=== PATIENT | female | born 1970 | race African-American/Black ===

== ENCOUNTER 2020-09-12 10:33 | Inpatient (IN) | payer OTHER, SELFPAY ==
[2020-09-12] VITALS (12 sets, daily range): BP systolic 120–153; BP diastolic 73–86; PULSE 86–108; RESP 15–45; TEMP 36.2–36.7; O2SAT 80–100; BMI 32.5
--- NOTE | ~2020-09-12 | CT_ITS ---
EXAMINATION: CTA chest PE protocol DATE: 09/14/2020 13:28 INDICATION: Hypoxia. Covid-positive. TECHNIQUE: Computed tomography angiography (CTA) of the chest was performed with 100 mL Omnipaque-350 intravenous contrast timed to evaluate the pulmonary arteries. Coronal maximum intensity projection 3D-reconstructions were created by the technologist. Automated exposure control and iterative reconst ruction technique were employed. Exam dose: 348.08 mGy-cm total exam DLP. COMPARISON: 09/12/2020 portable AP chest FINDINGS: There is diagnostic contrast enhancement of the pulmonary arteries and no evidence of pulmo nary embolism. There are extensive patchy infiltrates throughout both lungs all lobes. Mild hilar and mediastinal lymph node prominence is likely reactive. No thoracic aortic aneurysm. Normal heart size. No pericardial or pleural effusion. Small sliding hiatal hernia. Normal morphology of the adrenal glands. Included upper abdominal structures are unremarkable. IMPRESSION: Extensive bilateral pneumonia No evidence of pulmonary embolism Reviewed, dictated and finalized at [facility]. Reviewed, dictated and finalized at location [facility].
--- NOTE | ~2020-09-12 | XR_ITS ---
EXAMINATION: XR chest 1V portable DATE: 09/12/2020 11:01 INDICATION: Shortness of breath, cough and COVID positive TECHNIQUE: frontal view of the chest was obtained. COMPARISON: None FINDINGS: Patchy airspace opacities in the bilateral mid and lower lung zones. No pleural effusion or pneumotho rax. The cardiomediastinal silhouette is normal. Visualized bones and soft tissues are unremarkable. IMPRESSION: 1. Patchy bilateral lung disease most likely related to COVID pneumonia with differential including l ess likely pulmonary edema. Reviewed, dictated and finalized at location [facility]. IMPRESSION: 1. Patchy bilateral lung disease most likely related to COVID pneumonia with di fferential including less likely pulmonary edema.
--- NOTE | 2020-09-12 10:42 | ECG_ITS ---
Measurements Intervals [place] Rate: 100 P: 26 CT: 173 QRS: -22 QRSD: 86 T: 3 QT: 333 QTc: 430 Interpretive Statements SINUS TACHYCARDIA POSSIBLE LEFT ATRIAL ENLARGEMENT BORDERLINE R WAVE PROGRESSION, ANTERIOR LEADS BORDERLINE T WAVE ABNORMALITY- ANT/INF LEADS BORDERLINE ECG Electronically Signed On 09-13-2020 7:04:59 CDT by Ridge Dorman D.O.
--- NOTE | 2020-09-12 10:53 | ED.GENADULT ---
HPI - General Adult General Chief complaint: Shortness of Breath/Dyspnea Stated complaint: SOB, COVID + Source: patient History of Present Illness HPI narrative: Patient is 49 y/o female complaining of increasing SOB for last 1-2 days. Exertion worsens her SOB. She states that she has been sick with fever up to 102, cough, SOB and weakness for approximately 10 days. She tested positive for COVID on 09/07/20. She did received any outpatient treatment for COVID. She has not received COVID vaccine. EMS reports sat of 85% on RA when they arrived. Patient was placed on O2. Related Data Home Medications Medication Instructions Recorded Confirmed alprazolam [Xanax] 0.25 mg PO BID PRN 09/12/20 sertraline [Zoloft] 50 mg PO DAILY 09/12/20 Allergies Allergy/AdvReac Type Severity Reaction Status Date / Time No Known Allergies Allergy Verified 09/12/20 10:50 Review of Systems Constitutional: Constitutional: Reports chills, Reports fever(s), Reports headache(s) and Reports weakness Eyes: Eyes: Denies blurry vision ENT: Reports headache(s) and Denies neck pain Cardiovascular: Cardiovascular: Denies chest pain and Reports dyspnea Respiratory: Respiratory: Reports cough and Reports dyspnea Gastrointestinal: Gastrointestinal: Denies abdominal pain, Denies diarrhea, Denies nausea and Denies vomiting Genitourinary: Genitourinary: Denies hematuria and Denies dysuria Musculoskeletal: Musculoskeletal: Denies back pain and Denies neck pain Neurologic: Reports headache(s) and Reports weakness Exam Const: General: no acute distress and well developed Orientation/consciousness: oriented to person, oriented to place, oriented to time and patient oriented x3 HENMT: Head: normocephalic Ears: external ears normal General nose exam: Normal external nose present Eyes: General: appearance normal, both eyes and all related structures Conjunctivae: conjunctivae normal Neck: Neck: normal visual inspection and full ROM Chest: Chest palpation & inspection: normal inspection of the chest and no tenderness Resp: Effort & Inspection: tachypneic Auscultation: clear to auscultation bilaterally Cardio: Rate: tachycardic Rhythm: regular rhythm GI: GI Palp: No abdominal tenderness and Yes Soft to palpation Skin: General skin exam: normal color and turgor normal Neuro: General: oriented to person, oriented to place, oriented to time and patient oriented x3 Cognition (Neuro): normal cognition Extrem: General: normal to inspection, full ROM and no pedal edema Psych: Appearance: grossly normal Mental Status: mental status grossly normal Affect: normal affect Course Consultations Consultation #1: Discussed with ANJALI Kilgore, who agrees to admit. Date: 09/12/20 Time: 12:47 Vital Signs Vital signs: Vital Signs Temperature 36.6 C 09/12/20 10:40 Pulse Rate 101 H 09/12/20 10:40 Respiratory Rate 24 H 09/12/20 10:40 Blood Pressure 126/86 09/12/20 10:40 Pulse Oximetry 96 09/12/20 10:40 Temperature 36.6 C 09/12/20 10:40 Pulse Rate 101 H 09/12/20 11:46 Respiratory Rate 15 09/12/20 11:46 Blood Pressure 135/78 09/12/20 11:46 Pulse Oximetry 93 09/12/20 11:46 Medical Decision Making Vital Signs Vital Signs: Vital Signs Temperature 36.6 C 09/12/20 10:40 Pulse Rate 101 H 09/12/20 10:40 Respiratory Rate 24 H 09/12/20 10:40 Blood Pressure 126/86 09/12/20 10:40 Pulse Oximetry 96 09/12/20 10:40 Temperature 36.6 C 09/12/20 10:40 Pulse Rate 101 H 09/12/20 11:46 Respiratory Rate 15 09/12/20 11:46 Blood Pressure 135/78 09/12/20 11:46 Pulse Oximetry 93 09/12/20 11:46 Lab Data Result diagrams: 09/12/20 11:46 09/12/20 11:46 Labs: Lab Results 09/12/20 09/12/20 09/12/20 Range/Units 11:46 11:46 11:46 WBC 4.3 L (4.5-10.0) K/mm3 RBC 4.69 (4.2-5.4) M/mm3 Hgb 14.6 (12.0-15.0) g/dL Hct 43.1 (37.0-47.0) % MCV 91.9 (80-1
--- NOTE | 2020-09-12 10:58 | PC.NURSE ---
Xray at bedside.
[2020-09-12] MEDS: DEXAMETHASONE SOD PHOS INJ 4 MG/ML VIAL 6 MG IV PUSH (10:59)
[2020-09-12 11:52] LABS: Basophils Percent Auto 0.2 % (0.2-1.2); Hematocrit 43.1 % (37.0-47.0); Hemoglobin 14.6 g/dL (12.0-15.0); Immature Granulocyte Absolute 0.01 K/mm3 (0.00-0.031); Immature Granulocyte Percent A 0.2 % (0-0.5); Lymphocytes Absolute Auto 0.51 K/mm3 (0.9-3.2); Lymphocytes Percent Auto 11.9 % (18.3-44.2); Mean Corpuscular HGB Conc 33.9 g/dl (32-36); Mean Corpuscular Hemoglobin 31.1 pg (26-34); Mean Corpuscular Volume 91.9 fl (80-100); Mean Platelet Volume 10.8 fl (7.4-10.4); Monocytes Absolute Auto 0.2 K/mm3 (0.1-0.6); Monocytes Percent Auto 4.9 % (2.6-8.5); Neutrophils Absolute Auto 3.6 K/mm3 (1.3-6.7); Neutrophils Percent Auto 82.8 % (45.5-73.1); Platelet Count Result 185 k/mm3 (150-375); Red Blood Count 4.69 M/mm3 (4.2-5.4); Red Cell Distribution Width 14.1 % (11.5-14.5); White Blood Count 4.3 K/mm3 (4.5-10.0)
[2020-09-12 12:04] LABS: Alanine Aminotransferase 119 U/L (4-35); Albumin Level 3.7 g/dL (3.5-5.1); Alkaline Phosphatase 64 U/L (38-126); Anion Gap 6 mmol/L (8-16); Aspartate Amino Transferase 150 U/L (14-36); Bilirubin,Total 0.3 mg/dL (0.2-1.3); Blood Urea Nitrogen 5 mg/dL (7-17); Calcium 8.9 mg/dL (8.4-10.2); Carbon Dioxide 26 mmol/L (22-30); Chloride 106 mmol/L (98-107); Estimated CRCL calculation 98 ml/min; Estimated Glomerular Filt Rate > 60; Glucose 112 mg/dL (65-105); Potassium 4.3 mmol/L (3.4-5.0); Sodium 138 mmol/L (137-145)
[2020-09-12 12:27] LABS: Troponin I < 0.012 ng/mL (0.000-0.034)
--- NOTE | 2020-09-12 13:03 | PC.NURSE ---
patient refused further care from this rn when helena rn attempted to attach iv tubing to iv accessand patient stated that her skin was pinched. patient became hostile and told this rn that she was tripping and asked this rn to leave room
[2020-09-12 13:35] LABS: INR 0.9; Partial Thromboplastin Time 34.3 SECONDS (22.3-36.8); Prothrombin Time 12.8 Seconds (11.1-14.7)
[2020-09-12] MEDS: REMDESIVIR 200 MG/NS 250 ML 200 MG/250 ML BAG 250 MG IVPB (13:37)
[2020-09-12 14:34] LABS: Troponin I < 0.012 ng/mL (0.000-0.034)
--- NOTE | 2020-09-12 14:36 | ADMGEN ---
This patient, Georgia Rivera, was admitted to [address] [place] [address] Room 311-01. Patient/family oriented to hospital policies and general routines including ID bracelet, bed and alarms, visiting hours, pain management, procedures, bathroom and other care routines, personal items, smoking policy, room service/diet, and visiting hours. Information on how to activate the Rapid Response Team has been discussed. Patient/Family are encouraged to report perceived risks to care and to ask questions if they do not understand what they are told or what they should do.
--- NOTE | 2020-09-12 15:30 | PM.IMHP ---
H&P: HPI History of Present Illness Date/Time: 09/12/20 15:30 Chief Complaint: Shortness of breath. Narrative: This is a relatively healthy 49-year-old female who presented to the emergency department earlier today via EMS from home for evaluation of shortness of breath. She has not been feeling well since 09/02/2020 with multiple symptoms to include generalized malaise, fatigue, body aches, joint aches, fever with a T-max of 102? F, loss of taste, decreased appetite, sore throat, and cough productive of clear phlegm. She tested positive for COVID-19 on 09/07/2020 and was told by the health department that she could come out of quarantine tomorrow. Unfortunately she has felt worse over the past couple of days with progressive shortness of breath. She has been monitoring her pulse ox at home and reports that it was in the mid 70s today prompting her to call 911. On EMS arrival her SpO2 was 85% on room air and she is now requiring 5 liters nasal cannula to maintain saturations above 90%. She is not certain as to where she picked up COVID however notes that her 7-year-old grandson was positive. She denies chest pain and pleuritic pain. No vomiting or diarrhea. Review of Systems Review of Systems: Narrative: Twelve systems were reviewed with pertinent positives and negatives as per HPI. She has had isolated readings of elevated blood pressure however that typically occurs when she is at the doctor's office. She is monitored them at home is not required antihypertensives. She has also been told that her lipids are a bit elevated however she is watching that with diet and exercise. Except as documented, all other systems were reviewed and are negative. [facility] Past Medical History Medical History (Updated 09/12/20 @ 15:13 by Magui Sena PA-C) Anxiety Hyperlipidemia Surgical History Surgical History (Updated 09/12/20 @ 15:13 by Magui Sena PA-C) History of tubal ligation Family History Family History (Updated 09/12/20 @ 23:33 by Magui Sena PA-C) Other Heart disease Social History Social History (Updated 09/12/20 @ 23:34 by Magui Sena PA-C) Social History: Surrogate decision maker: Sister Stefano and daughter Ricardo Montiel. Code status: Full code. Smoking packs per day: 0.5 Smoking cigarettes per day: 10.0 Years smoked: 3 Smoking pack-years: 1.50 Smoking status: Former smoker Alcohol intake: current Drinks per week: 8 Substance use: current Substance use type: does not use Additional living arrangements comments: Resides in [place], [place]. Additional occupation/education comments: Employed at [employer]. Gender identity (if verbalized by the patient): Female Spiritual care concerns: No Meds Home Medications and Allergies Home Medications Medication Instructions Recorded Confirmed Type alprazolam [Xanax] 0.25 mg PO BID PRN 09/12/20 09/12/20 History norethindrone acetate 5 mg PO DAILY 09/12/20 09/12/20 History sertraline [Zoloft] 50 mg PO DAILY 09/12/20 09/12/20 History Allergies Allergy/AdvReac Type Severity Reaction Status Date / Time No Known Allergies Allergy Verified 09/12/20 14:46 Vital Signs Vital Signs - 24 hr 09/12/20 10:40 09/12/20 10:49 09/12/20 10:50 Temperature 97.9 F Pulse Rate 101 H Respiratory Rate 24 H Blood Pressure 126/86 Pulse Oximetry 96 80 L 96 09/12/20 10:53 09/12/20 11:15 09/12/20 11:40 Temperature Pulse Rate 107 H 100 100 Respiratory Rate 28 H 45 H 18 Blood Pressure Pulse Oximetry 94 100 09/12/20 11:46 Temperature Pulse Rate 101 H Respiratory Rate 15 Blood Pressure 135/78 Pulse Oximetry 93 Exam Narrative: Exam Narrative: General: Well-developed female supine in bed in no acute distress. She is mildly ill in appearance. Weight: 102.8 kilograms. BMI: 32.5. HEENT: PERRL, EOMI. Sclerae anicteric. Oral mucosa is tacky. Oropharynx clear. Neck: Supple. No
[2020-09-12 17:31] LABS: Troponin I < 0.012 ng/mL (0.000-0.034)
[2020-09-12] MEDS: WATER FOR IRRIGATION, STERILE 1,000 ML BOTTLE 1000 ML (23:39)
[2020-09-13] VITALS (8 sets, daily range): BP systolic 113–145; BP diastolic 61–84; PULSE 66–91; RESP 18–22; TEMP 36.1–36.8; O2SAT 90–95
[2020-09-13 06:33] LABS: Hematocrit 42.7 % (37.0-47.0); Hemoglobin 14.3 g/dL (12.0-15.0); Mean Corpuscular HGB Conc 33.5 g/dl (32-36); Mean Corpuscular Hemoglobin 30.9 pg (26-34); Mean Corpuscular Volume 92.2 fl (80-100); Mean Platelet Volume 10.8 fl (7.4-10.4); Platelet Count Result 241 k/mm3 (150-375); Red Blood Count 4.63 M/mm3 (4.2-5.4); Red Cell Distribution Width 14.2 % (11.5-14.5); White Blood Count 4.6 K/mm3 (4.5-10.0)
[2020-09-13 07:15] LABS: Alanine Aminotransferase 125 U/L (4-35); Albumin Level 3.8 g/dL (3.5-5.1); Alkaline Phosphatase 62 U/L (38-126); Anion Gap 7 mmol/L (8-16); Aspartate Amino Transferase 104 U/L (14-36); Bilirubin,Total 0.2 mg/dL (0.2-1.3); Blood Urea Nitrogen 6 mg/dL (7-17); CRP 25.3 mg/dL (<1.0); Calcium 9.2 mg/dL (8.4-10.2); Carbon Dioxide 26 mmol/L (22-30); Chloride 106 mmol/L (98-107); Estimated CRCL calculation 111 ml/min; Estimated Glomerular Filt Rate > 60; Glucose 134 mg/dL (65-105); Lactate Dehydrogenase 921 U/L (313-618); Potassium 4.3 mmol/L (3.4-5.0); Sodium 139 mmol/L (137-145)
[2020-09-13] MEDS: SERTRALINE HCL 50 MG TABLET PO (08:38)
[2020-09-13] MEDS: DEXAMETHASONE SOD PHOS INJ 4 MG/ML VIAL 6 MG IV PUSH (08:38)
[2020-09-13] MEDS: ENOXAPARIN 40 MG/0.4 ML SYRINGE SUB-Q (08:38)
[2020-09-13] MEDS: REMDESIVIR 100 MG/NS 250 ML 100 MG/250 ML BAG 250 MG IVPB (09:39)
[2020-09-13] MEDS: PANTOPRAZOLE 40 MG TABLET PO (11:17)
[2020-09-13] MEDS: SALINE 0.65% NAS SOLN 44 ML BTL 1 SPRAY NASAL (12:31)
--- NOTE | 2020-09-13 16:09 | PM.IMPN ---
Progress Note: A&P Assessment and Plan (1) Acute respiratory failure with hypoxia: Code(s): J96.01 - Acute respiratory failure with hypoxia Status: Acute Assessment and Plan: Secondary to COVID-19 pneumonia. Pulmonary embolism less likely given history. She is requiring 10 L supplemental oxygen per high-flow nasal cannula. She is maintaining adequate oxygen saturations with this. She notes that she is agreeable to intubation if this were to be necessary. Continue supplemental O2 with goal saturation 90% or above. Wean to goal. Treatment of COVID-19 as described below (2) Pneumonia due to COVID-19 virus: Code(s): U07.1 - COVID-19; J12.82 - Pneumonia due to coronavirus disease 2019 Status: Acute Assessment and Plan: Tested positive for COVID-19 on 09/07/2020 with symptom onset 09/02/2020. Chest x-ray showed patchy bilateral lung disease related to COVID pneumonia. She is afebrile. Continue IV dexamethasone and Remdesivir, initiated on 09/12/2020. Supportive care including expectorants, antipyretics, and bronchodilators Trend acute phase reactants Supplemental oxygen as needed. Continuous pulse ox monitoring given increased O2 requirements. Continue isolation precautions (3) Anxiety: Code(s): F41.9 - Anxiety disorder, unspecified Status: Acute Assessment and Plan: Mood is stable at this time. Continue sertraline and alprazolam as needed. (4) Elevated blood pressure reading: Code(s): R03.0 - Elevated blood-pressure reading, without diagnosis of hypertension Status: Acute Assessment and Plan: She has had 2 isolated blood pressure readings that were elevated, in the 140s to 150s systolic. Other blood pressure readings well controlled in the 120s. Monitor blood pressure trends. Addition of antihypertensive agent not felt to be necessary at this time but will follow blood pressure trends. Subjective Date/time seen: 09/13/20 16:09 Interval history: Date of service: 09/13/20 Georgia Rivera is a 49 year old female with history of anxiety and hyperlipidemia who is seen in follow-up for COVID-19 pneumonia. She is feeling better today but is still pretty short of breath. She is having frequent cough productive of white sputum. She endorses dyspnea with minimal exertion. Denies orthopnea, PND, or wheezing. Denies fever or chills. Denies anosmia or dysgeusia. No body aches or headache. No nausea, vomiting, diarrhea. Her appetite has been good. No urinary symptoms. She has no additional concerns at this time. Review of Systems Review of Systems: All systems reviewed & are unremarkable except as noted in HPI and below Exam Narrative: Exam Narrative: Ms. Rivera is a well-nourished, well-appearing 49-year-old female who is lying supine in bed. She appears comfortable and is in NARD. Neuro: awake, alert and oriented x4, speech clear, no focal neuro deficits noted HEENMT: normocephalic, atraumatic, EOMI, sclerae anicteric, moist oral mucosa, tongue midline, nares patent Neck: supple, no lymphadenopathy Respiratory: Diminished breath sounds bilaterally without crackles, rhonchi or wheezes, nonlabored breathing Cardio: regular rate, regular rhythm with S1-S2 Abdomen: nondistended, normoactive bowel sounds, soft, nontender to palpation, no rigidity or guarding Extremities: no edema, erythema, cyanosis, clubbing, or tenderness to palpation, DP pulses 2+ bilaterally Skin: no rashes or lesions, warm and dry Psych: appropriate mood and affect, judgment and insight intact Objective Data Vital Signs Vital Signs: Vital Signs - 24 hr 09/12/20 20:00 09/12/20 23:50 09/13/20 00:00 Temperature 97.7 F 97.2 F L Pulse Rate 96 86 91 Respiratory Rate 22 H 20 Blood Pressure 120/75 123/77 Pulse Oximetry 93 93 09/13/20 04:00 09/13/20 08:00 09/13/20 08:35 Temperature 97.2 F L 98.3 F Pulse Rate 83 82 Respiratory
--- NOTE | 2020-09-13 17:14 | PHAR ---
PT'S HOME MED NORETHINDRONE 5 MG TAB VERIFIED BY PHARMACY
[2020-09-13] MEDS: guaiFENesin 12 HR 600 MG TABCR PO (20:45)
[2020-09-14] VITALS (13 sets, daily range): BP systolic 105–124; BP diastolic 57–74; PULSE 57–75; RESP 18–20; TEMP 36–37; O2SAT 87–97
[2020-09-14] MEDS: SODIUM CHLORIDE NASAL GEL 14.1 GM 1 APPLIC NASAL (01:48)
[2020-09-14 06:12] LABS: Hematocrit 42.7 % (37.0-47.0); Hemoglobin 14.1 g/dL (12.0-15.0); Mean Corpuscular Volume 90.9 fl (80-100); Mean Platelet Volume 10.6 fl (7.4-10.4); Platelet Count Result 324 k/mm3 (150-375); Red Cell Distribution Width 14.1 % (11.5-14.5); White Blood Count 3.9 K/mm3 (4.5-10.0)
[2020-09-14 06:32] LABS: Alanine Aminotransferase 140 U/L (4-35); Albumin Level 3.7 g/dL (3.5-5.1); Alkaline Phosphatase 59 U/L (38-126); Anion Gap 7 mmol/L (8-16); Aspartate Amino Transferase 97 U/L (14-36); Bilirubin,Total 0.3 mg/dL (0.2-1.3); Blood Urea Nitrogen 11 mg/dL (7-17); Calcium 9.2 mg/dL (8.4-10.2); Carbon Dioxide 26 mmol/L (22-30); Chloride 105 mmol/L (98-107); Estimated CRCL calculation 111 ml/min; Estimated Glomerular Filt Rate > 60; Glucose 127 mg/dL (65-105); Lactate Dehydrogenase 856 U/L (313-618); Potassium 4.4 mmol/L (3.4-5.0); Sodium 138 mmol/L (137-145)
--- NOTE | 2020-09-14 09:22 | PM.IMPN ---
Progress Note: A&P Assessment and Plan (1) Acute respiratory failure with hypoxia: Code(s): J96.01 - Acute respiratory failure with hypoxia Status: Acute Assessment and Plan: [place] secondary to COVID-19 pneumonia. She required up to 10 L supplemental oxygen per high-flow nasal cannula and she was weaned to 9 L today. She notes that she is agreeable to intubation if this were to be necessary. Will order chest CTA to r/o pulmonary embolism given high oxygen requirements Continue supplemental O2 with goal saturation 90% or above. Wean to goal. Treatment of COVID-19 as described below (2) Pneumonia due to COVID-19 virus: Code(s): U07.1 - COVID-19; J12.82 - Pneumonia due to coronavirus disease 2018 Status: Acute Assessment and Plan: Tested positive for COVID-19 on 09/07/2020 with symptom onset 09/02/2020. Chest x-ray showed patchy bilateral lung disease related to COVID pneumonia. She is afebrile. Continue IV dexamethasone and Remdesivir, initiated on 09/12/2020. Supportive care including expectorants, antipyretics, bronchodilators, and chest physiotherapy Trend acute phase reactants Supplemental oxygen as needed. Continuous pulse ox monitoring given increased O2 requirements. Continue isolation precautions (3) Anxiety: Code(s): F41.9 - Anxiety disorder, unspecified Status: Acute Assessment and Plan: Mood is stable at this time. Continue sertraline and alprazolam as needed. (4) Elevated blood pressure reading: Code(s): R03.0 - Elevated blood-pressure reading, without diagnosis of hypertension Status: Acute Assessment and Plan: She has had 2 isolated blood pressure readings that were elevated, in the 140s to 150s systolic, likely secondary to acute illness and hospitalization. Other blood pressure readings well controlled in the 120s. Most recent BP 105/57. Monitor blood pressure trends. Addition of antihypertensive agent not felt to be necessary at this time but will follow blood pressure trends. Additional Plan Add colace and miralax PRN for constipation. Subjective Date/time seen: 09/14/20 09:22 Interval history: Mrs. Rivera is a 49 y.o. female with PMH significant for anxiety and hyperlipidemia who is seen in follow-up for COVID-19 pneumonia. She is feeling a bit better today. She notes dyspnea with exertion but she is comfortable at rest. She feels it is difficult to take deep breaths. She denies pleuritic pain or chest pain. Her nose is dry from the oxygen use. She is not having any dizziness or lightheadedness. Her appetite is poor. She has no abdominal pain, nausea, or vomiting. Her last bowel movement was Sunday morning. She denies leg swelling and calf pain. She denies headache. She has no other complaints. Review of Systems Review of Systems: All systems reviewed & are unremarkable except as noted in HPI and below Exam Narrative: Exam Narrative: General: Very pleasant, well-developed, and well-nourished 49 y.o. female sitting at the edge of the bed in no acute distress. Non-toxic in appearance. HEENMT: Normocephalic and atraumatic. Sclerae anicteric. EOMI. Oral mucosa moist. Neck: Supple without lymphadenopathy or masses. Cardiac: Regular rate and rhythm. S1 and S2 normal. Telemetry reviewed from 09/14/20 with sinus rhythm, infrequent PVCs. Lungs: Tolerating 9 liters per nasal cannula with oxygen saturation 90% with activity. Respirations even and non-labored. Breath sounds are diminished throughout with crackles at the mid and lower lung sim. Abdomen: Normoactive bowel sounds. Abdomen is soft, non-distended, and non-tender. Extremities: Warm and well-perfused. No lower extremity edema or calf tenderness. Damaris negative. DP and PT 2+ bilaterally. Neurological: Alert. Exam non-focal to casual conversation. Speech is clear. Skin: Warm and dry. Psychiatric: Judgment and insight intact. Pleasant mood and appro
[2020-09-14] MEDS: PANTOPRAZOLE 40 MG TABLET PO (09:23)
[2020-09-14] MEDS: DEXAMETHASONE SOD PHOS INJ 4 MG/ML VIAL 6 MG IV PUSH (09:23)
[2020-09-14] MEDS: guaiFENesin 12 HR 600 MG TABCR PO ×2 (09:23→20:35)
[2020-09-14] MEDS: ENOXAPARIN 40 MG/0.4 ML SYRINGE SUB-Q ×2 (09:23→20:35)
[2020-09-14] MEDS: SALINE 0.65% NAS SOLN 44 ML BTL 1 SPRAY NASAL (09:24)
[2020-09-14] MEDS: SERTRALINE HCL 50 MG TABLET PO (09:24)
[2020-09-14] MEDS: REMDESIVIR 100 MG/NS 250 ML 100 MG/250 ML BAG 250 MG IVPB (10:27)
[2020-09-14] MEDS: DOCUSATE SODIUM 100 MG CAPSULE PO (20:36)
[2020-09-15] VITALS (10 sets, daily range): BP systolic 109–123; BP diastolic 62–79; PULSE 58–84; RESP 18–20; TEMP 36.3–37.1; O2SAT 92–98
[2020-09-15 06:27] LABS: Alanine Aminotransferase 182 U/L (4-35); Albumin Level 3.6 g/dL (3.5-5.1); Alkaline Phosphatase 59 U/L (38-126); Anion Gap 7 mmol/L (8-16); Aspartate Amino Transferase 78 U/L (14-36); Bilirubin,Total 0.3 mg/dL (0.2-1.3); Blood Urea Nitrogen 11 mg/dL (7-17); CRP 4.3 mg/dL (<1.0); Calcium 9.2 mg/dL (8.4-10.2); Carbon Dioxide 25 mmol/L (22-30); Chloride 106 mmol/L (98-107); Creatine Kinase 30 U/L (30-135); Estimated CRCL calculation 111 ml/min; Estimated Glomerular Filt Rate > 60; Glucose 122 mg/dL (65-105); Lactate Dehydrogenase 666 U/L (313-618); Magnesium 1.9 mg/dL (1.6-2.3); Potassium 4.1 mmol/L (3.4-5.0); Sodium 138 mmol/L (137-145)
[2020-09-15 06:42] LABS: Basophils Percent Auto 0.2 % (0.2-1.2); Hematocrit 43.5 % (37.0-47.0); Hemoglobin 14.7 g/dL (12.0-15.0); Immature Granulocyte Absolute 0.07 K/mm3 (0.00-0.031); Immature Granulocyte Percent A 1.4 % (0-0.5); Lymphocytes Absolute Auto 1.23 K/mm3 (0.9-3.2); Lymphocytes Percent Auto 24.6 % (18.3-44.2); Mean Corpuscular HGB Conc 33.8 g/dl (32-36); Mean Corpuscular Volume 91.8 fl (80-100); Mean Platelet Volume 10.4 fl (7.4-10.4); Monocytes Absolute Auto 0.5 K/mm3 (0.1-0.6); Monocytes Percent Auto 9.4 % (2.6-8.5); Neutrophils Absolute Auto 3.2 K/mm3 (1.3-6.7); Neutrophils Percent Auto 64.4 % (45.5-73.1); Platelet Count Result 366 k/mm3 (150-375); Red Blood Count 4.74 M/mm3 (4.2-5.4); Red Cell Distribution Width 14.3 % (11.5-14.5)
[2020-09-15 06:58] LABS: Platelet Estimate Adequate (Adequate)
[2020-09-15 06:59] LABS: Ovalocytes 1+ (NORMAL)
[2020-09-15] MEDS: SERTRALINE HCL 50 MG TABLET PO (10:13)
[2020-09-15] MEDS: guaiFENesin 12 HR 600 MG TABCR PO ×2 (10:13→20:43)
[2020-09-15] MEDS: ENOXAPARIN 40 MG/0.4 ML SYRINGE SUB-Q ×2 (10:13→20:43)
[2020-09-15] MEDS: DOCUSATE SODIUM 100 MG CAPSULE PO ×2 (10:13→20:43)
[2020-09-15] MEDS: DEXAMETHASONE SOD PHOS INJ 4 MG/ML VIAL 6 MG IV PUSH (10:14)
[2020-09-15] MEDS: PANTOPRAZOLE 40 MG TABLET PO (10:14)
[2020-09-15] MEDS: REMDESIVIR 100 MG/NS 250 ML 100 MG/250 ML BAG 250 MG IVPB (10:14)
--- NOTE | 2020-09-15 11:38 | PM.IMPN ---
Progress Note: A&P Assessment and Plan (1) Acute respiratory failure with hypoxia: Code(s): J96.01 - Acute respiratory failure with hypoxia Status: Acute Assessment and Plan: [place] secondary to COVID-19 pneumonia. She required up to 10 L supplemental oxygen per high-flow nasal cannula and she was weaned to 8 L today. She notes that she is agreeable to intubation if this were to be necessary. CTA chest negative for pulmonary embolism but does show extensive patchy infiltrates bilaterally in all lobes. Continue supplemental O2 with goal saturation 90% or above. Wean to goal. Treatment of COVID-19 as described below (2) Pneumonia due to COVID-19 virus: Code(s): U07.1 - COVID-19; J12.82 - Pneumonia due to coronavirus disease 2018 Status: Acute Assessment and Plan: Tested positive for COVID-19 on 09/07/2020 with symptom onset 09/02/2020. Chest x-ray showed patchy bilateral lung disease related to COVID pneumonia. She is afebrile. CRP markedly improved from 25.3 on admission to 4.3. Other acute phase reactants also improving. Continue IV dexamethasone and Remdesivir, initiated on 09/12/2020. Monitor ALT closely. ALT elevation noted, discussed with patient and benefits of remdesivir are felt to outweigh risks at this time. Supportive care including expectorants, antipyretics, bronchodilators, and chest physiotherapy Trend acute phase reactants Supplemental oxygen as needed. Continuous pulse ox monitoring given increased O2 requirements. Continue isolation precautions (3) Anxiety: Code(s): F41.9 - Anxiety disorder, unspecified Status: Acute Assessment and Plan: Mood is stable at this time. Continue sertraline and alprazolam as needed. (4) Elevated blood pressure reading: Code(s): R03.0 - Elevated blood-pressure reading, without diagnosis of hypertension Status: Resolved Assessment and Plan: Resolved. She has had 2 isolated blood pressure readings that were elevated, in the 140s to 150s systolic, likely secondary to acute illness and hospitalization. Other blood pressure readings well controlled in the 120s. Most recent BP 105/57. Monitor blood pressure trends. Addition of antihypertensive agent not felt to be necessary at this time but will follow blood pressure trends. (5) Transaminitis: Code(s): R74.01 - Elevation of levels of liver transaminase levels Status: Acute Assessment and Plan: Likely secondary to COVID-19 infection. Monitor ALT closely given remdesivir therapy. She will need outpatient CMP to ensure resolution once she recovers from acute illness. Additional Plan Add colace and miralax PRN for constipation. Subjective Date/time seen: 09/15/20 11:38 Interval history: Mrs. Rivera is a 49 y.o. female with PMH significant for anxiety and hyperlipidemia who is seen in follow-up for COVID-19 pneumonia. She relates that she feels a bit better each day. She was weaned to 8 liters per nasal cannula. She is able to tolerate activity better today and notes less dyspnea with exertion when moving from the bed to the commode. She is still coughing and is mobilizing sputum which is clear and yellow in color. She has no chest pain, chest pressure, or pleuritic pain. She denies palpitations. She has not had a bowel movement yet but did start the stool softener. She denies abdominal pain and bloating. She denies nausea and vomiting. Her appetite is still poor but she is trying to eat more. She has no other complaints. Review of Systems Review of Systems: All systems reviewed & are unremarkable except as noted in HPI and below Exam Narrative: Exam Narrative: General: Very pleasant, well-developed, and well-nourished 49 y.o. female lying semi-recumbent in bed in no acute distress. HEENMT: Normocephalic and atraumatic. Sclerae anicteric. EOMI. Oral mucosa moist. Neck: Supple. Cardiac: Regular rate and rhythm.
[2020-09-15] MEDS: polyethylene glycoL 3350 17 GM POWD.PACK PO (12:32)
[2020-09-16] VITALS (12 sets, daily range): BP systolic 103–110; BP diastolic 57–73; PULSE 55–72; RESP 18–20; TEMP 35.8–37; O2SAT 94–97
[2020-09-16 06:24] LABS: Basophils Absolute Auto 0.1 K/mm3 (0.0-0.1); Basophils Percent Auto 0.8 % (0.2-1.2); Eosinophils Absolute Auto 0.1 K/mm3 (0-0.3); Eosinophils Percent Auto 2.2 % (0-4.4); Hematocrit 48.1 % (37.0-47.0); Hemoglobin 15.6 g/dL (12.0-15.0); Immature Granulocyte Absolute 0.16 K/mm3 (0.00-0.031); Immature Granulocyte Percent A 2.5 % (0-0.5); Lymphocytes Percent Auto 24.7 % (18.3-44.2); Mean Corpuscular HGB Conc 32.4 g/dl (32-36); Mean Corpuscular Hemoglobin 30.6 pg (26-34); Mean Corpuscular Volume 94.5 fl (80-100); Mean Platelet Volume 10.9 fl (7.4-10.4); Monocytes Absolute Auto 0.7 K/mm3 (0.1-0.6); Monocytes Percent Auto 10.6 % (2.6-8.5); Neutrophils Absolute Auto 3.9 K/mm3 (1.3-6.7); Neutrophils Percent Auto 59.2 % (45.5-73.1); Platelet Count Result 288 k/mm3 (150-375); Red Blood Count 5.09 M/mm3 (4.2-5.4); Red Cell Distribution Width 14.1 % (11.5-14.5); White Blood Count 6.5 K/mm3 (4.5-10.0)
[2020-09-16 07:12] LABS: Alanine Aminotransferase 154 U/L (4-35); Albumin Level 3.6 g/dL (3.5-5.1); Alkaline Phosphatase 56 U/L (38-126); Anion Gap 10 mmol/L (8-16); Aspartate Amino Transferase 47 U/L (14-36); Bilirubin,Total 0.4 mg/dL (0.2-1.3); Blood Urea Nitrogen 11 mg/dL (7-17); CRP 2.2 mg/dL (<1.0); Calcium 9.6 mg/dL (8.4-10.2); Carbon Dioxide 21 mmol/L (22-30); Chloride 109 mmol/L (98-107); Creatine Kinase 23 U/L (30-135); Estimated CRCL calculation 98 ml/min; Estimated Glomerular Filt Rate > 60; Glucose 105 mg/dL (65-105); Lactate Dehydrogenase 702 U/L (313-618); Potassium 4.3 mmol/L (3.4-5.0); Sodium 140 mmol/L (137-145)
[2020-09-16] MEDS: ENOXAPARIN 40 MG/0.4 ML SYRINGE SUB-Q ×2 (08:39→20:30)
[2020-09-16] MEDS: PANTOPRAZOLE 40 MG TABLET PO (08:39)
[2020-09-16] MEDS: DOCUSATE SODIUM 100 MG CAPSULE PO ×2 (08:39→20:34)
[2020-09-16] MEDS: guaiFENesin 12 HR 600 MG TABCR PO ×2 (08:39→20:31)
[2020-09-16] MEDS: DEXAMETHASONE SOD PHOS INJ 4 MG/ML VIAL 6 MG IV PUSH (08:39)
[2020-09-16] MEDS: SERTRALINE HCL 50 MG TABLET PO (08:40)
--- NOTE | 2020-09-16 09:34 | PM.IMPN ---
Progress Note: A&P Assessment and Plan (1) Acute respiratory failure with hypoxia: Code(s): J96.01 - Acute respiratory failure with hypoxia Status: Acute Assessment and Plan: [place] secondary to COVID-19 pneumonia. She required up to 10 L supplemental oxygen per high-flow nasal cannula and continues to improve. She is on 6 liters per nasal cannula today. CTA chest negative for pulmonary embolism but does show extensive patchy infiltrates bilaterally in all lobes. Continue supplemental O2 with goal saturation 90% or above. Wean to goal. Treatment of COVID-19 as described below (2) Pneumonia due to COVID-19 virus: Code(s): U07.1 - COVID-19; J12.82 - Pneumonia due to coronavirus disease 2018 Status: Acute Assessment and Plan: Tested positive for COVID-19 on 09/07/2020 with symptom onset 09/02/2020. Chest x-ray showed patchy bilateral lung disease related to COVID pneumonia. She is afebrile. CRP continues to improve (25.3 on admission to 2.2 today). LDH with mild increase, ferritin improving. LFTs improved. Continue IV dexamethasone and Remdesivir, initiated on 09/12/2020. Monitor ALT closely. Supportive care including expectorants, antipyretics, bronchodilators, and chest physiotherapy Trend acute phase reactants Supplemental oxygen as needed. Continuous pulse ox monitoring given increased O2 requirements. Continue isolation precautions (3) Anxiety: Code(s): F41.9 - Anxiety disorder, unspecified Status: Acute Assessment and Plan: Mood is stable at this time. Continue sertraline and alprazolam as needed. (4) Elevated blood pressure reading: Code(s): R03.0 - Elevated blood-pressure reading, without diagnosis of hypertension Status: Resolved Assessment and Plan: Resolved. She has had 2 isolated blood pressure readings that were elevated, in the 140s to 150s systolic, likely secondary to stress from acute illness and hospitalization. Other blood pressure readings well controlled in the 120s. Most recent BP 109/65. Monitor blood pressure trends. Addition of antihypertensive agent not felt to be necessary at this time but will follow blood pressure trends. (5) Transaminitis: Code(s): R74.01 - Elevation of levels of liver transaminase levels Status: Acute Assessment and Plan: Likely secondary to COVID-19 infection. Monitor ALT closely given remdesivir therapy. She will need outpatient CMP to ensure resolution once she recovers from acute illness. Additional Plan Continue colace and miralax PRN for constipation. Subjective Date/time seen: 09/16/20 09:34 Interval history: Mrs. Rivera is a 49 y.o. female with PMH significant for anxiety and hyperlipidemia who is seen in follow-up for COVID-19 pneumonia. She is tired today but thinks her breathing has improved. She still has dyspnea with exertion but is feeling better each day. She is still coughing, worse at night, and cough is productive of clear/yellow sputum. She did not sleep very well last night and felt like she was a bit dehydrated so she is drinking more water. She denies subjective fever and chills. She denies chest pain and pleuritic pain. Her appetite improved yesterday and she is eating well. She has not had a bowel movement yet but is passing gas and has no abdominal pain, nausea, or vomiting. She is taking the miralax and colace. She has no other complaints. Review of Systems Review of Systems: All systems reviewed & are unremarkable except as noted in HPI and below Exam Narrative: Exam Narrative: General: Pleasant, well-developed, and well-nourished 49 y.o. female lying semi-recumbent in bed in no acute distress. HEENMT: Normocephalic and atraumatic. Oral mucosa tacky. Neck: Supple. Cardiac: Regular rate and rhythm. S1 and S2 normal. Lungs: Tolerating 6 liters per nasal cannula with oxygen saturation 94%. No increased work of breathing and she
[2020-09-16] MEDS: REMDESIVIR 100 MG/NS 250 ML 100 MG/250 ML BAG 250 MG IVPB (10:45)
[2020-09-16] MEDS: polyethylene glycoL 3350 17 GM POWD.PACK PO (20:29)
[2020-09-17] VITALS (11 sets, daily range): BP systolic 101–111; BP diastolic 53–62; PULSE 60–65; RESP 16–18; TEMP 36.4–37.2; O2SAT 93–97
[2020-09-17 06:13] LABS: Basophils Percent Auto 0.5 % (0.2-1.2); Eosinophils Percent Auto 0.5 % (0-4.4); Hematocrit 46.2 % (37.0-47.0); Hemoglobin 15.4 g/dL (12.0-15.0); Immature Granulocyte Absolute 0.17 K/mm3 (0.00-0.031); Immature Granulocyte Percent A 2.6 % (0-0.5); Lymphocytes Absolute Auto 1.74 K/mm3 (0.9-3.2); Mean Corpuscular HGB Conc 33.3 g/dl (32-36); Mean Corpuscular Volume 93.1 fl (80-100); Mean Platelet Volume 9.9 fl (7.4-10.4); Monocytes Absolute Auto 0.7 K/mm3 (0.1-0.6); Monocytes Percent Auto 10.1 % (2.6-8.5); Neutrophils Absolute Auto 3.8 K/mm3 (1.3-6.7); Neutrophils Percent Auto 59.3 % (45.5-73.1); Platelet Count Result 359 k/mm3 (150-375); Red Blood Count 4.96 M/mm3 (4.2-5.4); White Blood Count 6.4 K/mm3 (4.5-10.0)
[2020-09-17 06:37] LABS: Alanine Aminotransferase 120 U/L (4-35); Albumin Level 3.7 g/dL (3.5-5.1); Alkaline Phosphatase 40 U/L (38-126); Anion Gap 6 mmol/L (8-16); Aspartate Amino Transferase 45 U/L (14-36); Bilirubin,Total 0.7 mg/dL (0.2-1.3); Blood Urea Nitrogen 12 mg/dL (7-17); CRP 2.4 mg/dL (<1.0); Carbon Dioxide 23 mmol/L (22-30); Chloride 108 mmol/L (98-107); Estimated CRCL calculation 111 ml/min; Estimated Glomerular Filt Rate > 60; Glucose 109 mg/dL (65-105); Lactate Dehydrogenase 821 U/L (313-618); Potassium 4.5 mmol/L (3.4-5.0); Sodium 137 mmol/L (137-145)
[2020-09-17] MEDS: DOCUSATE SODIUM 100 MG CAPSULE PO ×2 (09:14→21:16)
[2020-09-17] MEDS: ENOXAPARIN 40 MG/0.4 ML SYRINGE SUB-Q ×2 (09:14→21:16)
[2020-09-17] MEDS: SERTRALINE HCL 50 MG TABLET PO (09:14)
[2020-09-17] MEDS: PANTOPRAZOLE 40 MG TABLET PO (09:14)
[2020-09-17] MEDS: DEXAMETHASONE SOD PHOS INJ 4 MG/ML VIAL 6 MG IV PUSH (09:14)
[2020-09-17] MEDS: guaiFENesin 12 HR 600 MG TABCR PO ×2 (09:14→21:16)
[2020-09-17] MEDS: polyethylene glycoL 3350 17 GM POWD.PACK PO (09:20)
--- NOTE | 2020-09-17 13:03 | PM.IMPN ---
Progress Note: A&P Assessment and Plan (1) Acute respiratory failure with hypoxia: Code(s): J96.01 - Acute respiratory failure with hypoxia Status: Acute Assessment and Plan: Resolved. [place] secondary to COVID-19 pneumonia. CTA chest negative for pulmonary embolism but does show extensive patchy infiltrates bilaterally in all lobes. She required up to 10 L supplemental oxygen per high-flow nasal cannula and continues to improve. She was weaned to room air today. Continue supplemental O2 with goal saturation 90% or above. Wean to goal. Treatment of COVID-19 as described below Plan for home oxygen evaluation tomorrow with possible discharge if she continues to improve (2) Pneumonia due to COVID-19 virus: Code(s): U07.1 - COVID-19; J12.82 - Pneumonia due to coronavirus disease 2018 Status: Acute Assessment and Plan: Tested positive for COVID-19 on 09/07/2020 with symptom onset 09/02/2020. Chest x-ray showed patchy bilateral lung disease related to COVID pneumonia. She is afebrile. She notes continued improvement. Continue IV dexamethasone (day 6 - initiated 09/12/20). She completed 5 days of remdesivir therapy. Supportive care including expectorants, antipyretics, bronchodilators, and chest physiotherapy Trend acute phase reactants Supplemental oxygen as needed. Continuous pulse ox monitoring given increased O2 requirements. (3) Anxiety: Code(s): F41.9 - Anxiety disorder, unspecified Status: Acute Assessment and Plan: Mood is stable at this time. Continue sertraline and alprazolam as needed. (4) Elevated blood pressure reading: Code(s): R03.0 - Elevated blood-pressure reading, without diagnosis of hypertension Status: Resolved Assessment and Plan: Resolved. She has had 2 isolated blood pressure readings that were elevated, in the 140s to 150s systolic, likely secondary to stress from acute illness and hospitalization. Other blood pressure readings well controlled in the 120s. Most recent BP 104/62. Monitor blood pressure trends. Addition of antihypertensive agent not felt to be necessary at this time but will follow blood pressure trends. (5) Transaminitis: Code(s): R74.01 - Elevation of levels of liver transaminase levels Status: Acute Assessment and Plan: Improving. Likely secondary to COVID-19 infection. Monitor ALT closely given remdesivir therapy. She will need outpatient CMP to ensure resolution once she recovers from acute illness. Additional Plan Continue colace and miralax PRN for constipation. Will add milk of magnesia x1 since she still has not had a bowel movement. Subjective Date/time seen: 09/17/20 13:03 Mrs. Rivera is a 49 y.o. female with PMH significant for anxiety and hyperlipidemia who is seen in follow-up for COVID-19 pneumonia. She is doing very well today. She was weaned to room air and her dyspnea has improved. She notes some fatigue this morning but she is feeling better. She has been up walking in the room without any significant shortness of breath. She has no chest pain or palpitations. She has no complaints of headache, lightheadedness, or dizziness. She still has not had a bowel movement yet. She denies abdominal pain, bloating, or distention. She has no nausea or vomiting. She is tolerating her diet and appetite has improved. She has no other concerns. Review of Systems Review of Systems: All systems reviewed & are unremarkable except as noted in HPI and below Exam Narrative: Exam Narrative: General: Pleasant, well-developed, and well-nourished 49 y.o. female lying semi-recumbent in bed after eating lunch in no acute distress. HEENMT: Normocephalic and atraumatic. Oral mucosa moist. Neck: Supple. Cardiac: Regular rate and rhythm. S1 and S2 normal. Lungs: Tolerating room air. Lungs have rales in the bases and are otherwise clear. Abdomen: Normoactive bowel sounds. Abdo
[2020-09-17] MEDS: MAGNESIUM HYDROXIDE SUSP 30 ML UDC PO (14:35)
[2020-09-18 04:00] VITALS: BP 102/62; PULSE 61; RESP 18; TEMP 37.2; O2SAT 95
[2020-09-18 06:44] LABS: Alanine Aminotransferase 96 U/L (4-35); Albumin Level 3.5 g/dL (3.5-5.1); Alkaline Phosphatase 56 U/L (38-126); Anion Gap 7 mmol/L (8-16); Aspartate Amino Transferase 30 U/L (14-36); Bilirubin,Total 0.3 mg/dL (0.2-1.3); Blood Urea Nitrogen 12 mg/dL (7-17); CRP 2.5 mg/dL (<1.0); Calcium 9.1 mg/dL (8.4-10.2); Carbon Dioxide 24 mmol/L (22-30); Chloride 108 mmol/L (98-107); Estimated CRCL calculation 111 ml/min; Estimated Glomerular Filt Rate > 60; Glucose 109 mg/dL (65-105); Sodium 139 mmol/L (137-145)
[2020-09-18 08:35] VITALS: PULSE 86; O2SAT 94
[2020-09-18 08:40] VITALS: PULSE 108; O2SAT 90
--- NOTE | 2020-09-18 09:03 | PCRCNOTE ---
Home Oxygen Evaluation RC: Home Oxygen (O2) Evaluation Start: 09/18/20 08:30 Freq: ONCE Status: Active Protocol: RPE Activity Type Activity Date Activity User E-Sign Co-Sign Detail Recorded Client Recorded Date Recorded By Document 09/18/20 08:35 TJT [email or web address] 09/18/20 08:56 TJT Document 09/18/20 08:40 TJT [email or web address] 09/18/20 09:03 TJT 09/18/20 09/18/20 08:35 08:40 Home O2 Evaluation Test Phase Resting Exercise Oxygen Delivery Room Air Room Air Fraction of Inspired Oxygen (%) 21 21 Pulse Oximetry (90-100 %) 94 90 Pulse Rate (60-100 beats/min) 86 108 H Ambulation Distance (feet) 100 Home Oxygen Evaluation Comments Pt does not require home O2 Treatment Charges O2 Evaluation - Inpatient
[2020-09-18] MEDS: DOCUSATE SODIUM 100 MG CAPSULE PO (09:22)
[2020-09-18] MEDS: SERTRALINE HCL 50 MG TABLET PO (09:23)
[2020-09-18] MEDS: PANTOPRAZOLE 40 MG TABLET PO (09:23)
[2020-09-18] MEDS: DEXAMETHASONE SOD PHOS INJ 4 MG/ML VIAL 6 MG IV PUSH (09:23)
[2020-09-18] MEDS: guaiFENesin 12 HR 600 MG TABCR PO (09:23)
[2020-09-18] MEDS: ENOXAPARIN 40 MG/0.4 ML SYRINGE SUB-Q (09:23)
[2020-09-18 09:24] VITALS: O2SAT 94
--- NOTE | 2020-09-18 10:10 | PM.DS ---
DS: Admitting Diagnosis Admitting Diagnosis Admitting Diagnosis: COVID-19 Pneumonia, Acute hypoxic respiratory failure DS: Discharge Diagnosis Discharge Diagnosis (1) Acute respiratory failure with hypoxia: Code(s): J96.01 - Acute respiratory failure with hypoxia Status: Acute Assessment and Plan: Discharge Summary (Date of service 09/18/20): Mrs. Rivera is a 49 y.o. female with PMH significant for anxiety and hyperlipidemia who presented to the emergency department 09/12/20 for the evaluation of shortness of breath for 1-2 days. She noted onset of several symptoms 09/02/20 including generalized malaise, fatigue, body aches, joint aches, fever w/ Tmax 102F, loss of taste, decreased appetite, sore throat, and cough productive of clear sputum. She tested positive for COVID-19 09/07/20. She started to feel worse 2 days prior to admission with progressive dyspnea and noticed that her oxygen saturation dropped to the mid 70s, prompting EMS activation. On EMS arrival, pulse oxygenation was 85% on room air and she was placed on 5 liters per nasal cannula to maintain adequate oxygen saturation. She was tachypneic on arrival to the emergency department. CXR demonstrated patchy bilateral airspace disease. Labs noted for leukopenia with lymphopenia. Transaminitis present with AST 150 and ALT 119. Troponin <0.012. She was treated with IV dexamethasone and remdesivir and admitted to the hospital for further care. CTA chest was negative for pulmonary embolism. She required up to 10 L supplemental oxygen per high-flow nasal cannula and we were able to start weaning her oxygen on 09/14/20. She completed 5 days of remdesivir on 09/16/20. She was weaned to room air on 09/17/20 and remained on room air overnight. Home oxygen evaluation was performed and she did not require any supplemental oxygen with activity. She felt significantly better with no significant dyspnea. She was discharged in hemodynamically stable condition on the morning of 09/18/20.Worrisome signs and symptoms which would warrant return to the emergency department were discussed and she verbalized understanding. She will complete 4 additional days of dexamethasone to complete 10 days of therapy. (2) Pneumonia due to COVID-19 virus: Code(s): U07.1 - COVID-19; J12.82 - Pneumonia due to coronavirus disease 2019 Status: Acute Assessment and Plan: As above. (3) Anxiety: Code(s): F41.9 - Anxiety disorder, unspecified Status: Acute Assessment and Plan: Mood was stable. Sertraline and alprazolam were continued. (4) Elevated blood pressure reading: Code(s): R03.0 - Elevated blood-pressure reading, without diagnosis of hypertension Status: Resolved Assessment and Plan: Resolved. She has had 2 isolated blood pressure readings that were elevated, in the 140s to 150s systolic, likely secondary to stress from acute illness and hospitalization. Other blood pressure readings were reasonable. She was advised to keep a blood pressure log for close monitoring. (5) Transaminitis: Code(s): R74.01 - Elevation of levels of liver transaminase levels Status: Acute Assessment and Plan: Improved. Likely secondary to COVID-19 infection. LFTs have improved. Repeat CMP ordered in 1 week for monitoring. DS: Summary Hospital Course Hospital Course: As above. Time Spent with Patient Time attestation: Total time spent providing and/or coordinating discharge services: 40 minutes Exam Narrative: Exam Narrative: Vitals at presentation: Temp Pulse Resp BP Pulse Ox 97.9 F 101 H 24 H 126/86 96 09/12/20 10:40 09/12/20 10:40 09/12/20 10:40 09/12/20 10:40 09/12/20 10:40 Vitals at discharge: Temp Pulse Resp BP Pulse Ox 98.9 F
== END 2020-09-18 11:25 | disposition home or self-care (01) | DRG 177 ==
LOC: ANHED 12:55 → ANH3MEDSUR 09-13 07:43
PROVIDERS: Physician Assistant; Admitting Provider Family Medicine; Emergency Provider Emergency Medicine; Visit Provider Physician Assistant
DX: U07.1 COVID-19 (principal); J12.82 Pneumonia due to coronavirus disease 2019; J96.01 Acute respiratory failure with hypoxia; F41.9 Anxiety disorder, unspecified
CPT/HCPCS: 36415; 71045; 71275; 80053; 82550; 82728; 83615; 83735; 84484; 85025; 85027; 85380; 85610; 85730; 86140; 87070; 87147; 87205; 93005; 94618; 94667; 96374; 99291; A9270; J1100; J1650; Q9967

== ENCOUNTER 2023-01-27 09:27 | Emergency (ER) | payer SELFPAY ==
[2023-01-27] VITALS (22 sets, daily range): BP systolic 104–134; BP diastolic 55–79; PULSE 57–86; RESP 12–32; TEMP 36.8; O2SAT 85–100
--- NOTE | ~2023-01-27 | XR_ITS ---
EXAMINATION: XR chest 2V DATE: 01/27/2023 10:48 INDICATION: Retention, dizziness and weakness TECHNIQUE: PA and lateral views of the chest were obtained. COMPARISON: Chest radiograph dated 09/12/[address] dated 09/14/2020 FINDINGS: The lungs are now clear with no focal airspace opacities, pulmonary edema, pleural effusion or pneumo thorax. The cardiomediastinal silhouette is normal. Visualized bones and soft tissues are unremarkabl e. IMPRESSION: 1. No acute cardiopulmonary disease. Reviewed, dictated and finalized at location A.
--- NOTE | ~2023-01-27 | CT_ITS ---
EXAMINATION: CT brain wo con DATE: 01/27/2023 10:57 INDICATION: Dizziness TECHNIQUE: Computed tomography (CT) of the head was performed without intravenous contrast. Sagittal and coronal reconstructions were performed. The mA was adjusted according to patient size. Iterative reconstruction technique was employed. The dose-length product was 605.33 mGy-cm. COMPARISON: None FINDINGS: No acute intracranial hemorrhage, acute infarction or abnormal extra axial fluid collection. Ventricl es are normal and symmetric. No mass/mass effect. Mild mucosal thickening in the bilateral ethmoid an d right maxillary sinuses. The orbits and mastoid air cells are normal. IMPRESSION: 1. Normal brain. No acute intracranial process. Reviewed, dictated and finalized at location A.
--- NOTE | ~2023-01-27 | CT_ITS ---
EXAMINATION: CTA chest PE protocol DATE: 01/27/2023 13:04 INDICATION: Shortness of breath. TECHNIQUE: Computed tomography (CT) pulmonary angiogram of the chest was performed with 100 mL Omnipa que-350 intravenous contrast. Additional 3D reconstructions utilizing coronal maximum intensity proje ction (MIP) were performed. Automated exposure control and iterative reconstruction technique were em ployed. The dose-length product was 532.23 mGy-cm. COMPARISON: None FINDINGS: Excellent contrast opacification of the pulmonary arteries. No pulmonary wasn't . Mosaic attenuation in the dependent lower lobes with small subsegmental regions of air-trapping likely related to small renal disease in the background of mild dependent atelectasis. No pneumonia, pulmonary edema, pleural effusion or pneumothorax. Heart size is normal. No pericardial effusion. Thoracic aorta is normal in caliber with no dissection. No pathologically enlarged thoracic lymphadenopathy. Visualized upper ab domen and bones are unremarkable. IMPRESSION: 1. No pulmonary embolism or other acute cardiopulmonary disease. Reviewed, dictated and finalized at location A.
--- NOTE | 2023-01-27 09:40 | ECG_ITS ---
Measurements Intervals [place] Rate: 62 P: 29 MD: 200 QRS: -22 QRSD: 97 T: 17 QT: 393 QTc: 399 Interpretive Statements SINUS RHYTHM LOW QRS VOLTAGE IN PRECORDIAL LEADS [QRS DEFLECTION < 1.0 mV IN CHEST LEADS] POOR R-WAVE PROGRESSION COMPARED TO ECG 09/12/2020 10:42:48 SINUS RHYTHM NOW PRESENT Electronically Signed On 01-27-2023 14:59:56 CDT by Keke Luque M.D.
--- NOTE | 2023-01-27 09:53 | ED.DIZZY ---
HPI - Dizziness General Chief Complaint: Dizziness Stated Complaint: DIZZINESS Time Seen by Provider: 01/27/23 09:43 Source: patient Mode of arrival: ambulatory Limitations: no limitations History of Present Illness HPI Narrative: Patient presents to the ER for dizziness. Ongoing since yesterday. Reports intermittent room spinning dizziness as well as lightheadedness. Reports she feels fatigued. Denies fever, vision changes, vomiting, numbness or weakness. Related Data Home Medications Medication Instructions Recorded Confirmed alprazolam 0.25 mg tablet (Xanax) 0.25 mg PO BID PRN Anxiety 09/12/20 09/12/20 norethindrone acetate 5 mg tablet 5 mg PO DAILY control 09/12/20 09/12/20 sertraline 50 mg tablet (Zoloft) 50 mg PO DAILY 09/12/20 09/12/20 Allergies Allergy/AdvReac Type Severity Reaction Status Date / Time No Known Allergies Allergy Verified 09/12/20 14:46 Review of Systems Review of Systems: CONSTITUTIONAL: Denies fever EYES: Denies visual changes CARDIOVASCULAR: Denies chest pain, or edema. RESPIRATORY: Reports dyspnea. GASTROINTESTINAL: Denies vomiting, or diarrhea. NEUROLOGIC: Denies headache, numbness, or weakness. PSYCHIATRIC: Reports anxiety All systems reviewed & are unremarkable except as noted in HPI and below PMFSH Past Medical History Medical History (Updated 01/27/23 @ 14:29 by Dotty Peters PA-C) Anxiety Hyperlipidemia Surgical History Surgical History (Updated 09/12/20 @ 15:13 by Magui Sena PA-C) History of tubal ligation Family History Family History (Updated 09/12/20 @ 23:33 by Magui Sena PA-C) Other Heart disease Social History Social History (Updated 09/12/20 @ 23:34 by Magui Sena PA-C) Social History: Surrogate decision maker: Sister Stefano and daughter Ricardo Montiel. Code status: Full code. Smoking packs per day: 0.5 Smoking cigarettes per day: 10.0 Years smoked: 3 Smoking pack-years: 1.50 Smoking status: Former smoker Alcohol intake: current Drinks per week: 8 Substance use: current Substance use type: does not use Additional living arrangements comments: Resides in [place], [place]. Additional occupation/education comments: Employed at [employer]. Gender identity (if verbalized by the patient): Female Spiritual care concerns: No Exam Narrative: GENERAL: Well-appearing, well-nourished, and in no acute distress. HEAD: Normocephalic, atraumatic. EYES: PERRLA and EOMI. ENT: Nares clear, no rhinorrhea or epistaxis. Mucous membranes moist. Oropharynx without tonsillar hypertrophy exudate or other lesions. Bilateral TMs pearly pineda non-bulging NECK: Supple. No adenopathy or masses. CHEST: Clear to auscultation. No respiratory distress. No wheezes rales or rhonchi HEART: Regular rate and rhythm. No murmur heard. Normal peripheral pulses. ABDOMEN: Soft, nontender, nondistended, normal active bowel sounds. EXTREMITIES: Normal range of motion. No edema. Strength equal in bilateral upper and lower extremities (5/5) SKIN: Warm, dry, no rash. NEURO: No focal deficits. Alert and oriented x3. Cranial nerves II through XII grossly intact. Normal heel to moreno PSYCH: Normal mood and affect Course Course Emergency Course: Patient was updated on work-up and agrees with plan of care Vital Signs Vital signs: Vital Signs Temperature 98.2 F 01/27/23 09:30 Pulse Rate 69 01/27/23 09:30 Respiratory Rate 16 01/27/23 09:30 Blood Pressure 134/75 01/27/23 09:30 Pulse Oximetry 100 01/27/23 09:30 Oxygen Delivery Room Air 01/27/23 09:30 Temperature 98.2 F 01/27/23 09:30 Pulse Rate 65 01/27/23 13:15 Respiratory Rate 18 01/27/23 13:15 Blood Pressure 104/55 L 01/27/23 13:15 Pulse Oximetry 97 01/27/23 13:15 Oxygen Delivery Room Air 01/27/23 09:30 MDM - Dizziness MDM Narrative Medical decision making narrative: Patient presents to the ER for lightheadedness on
[2023-01-27 10:03] LABS: Basophils Percent Auto 0.5 % (0.2-1.2); Eosinophils Absolute Auto 0.1 K/mm3 (0-0.3); Eosinophils Percent Auto 2.9 % (0-4.4); Hematocrit 45.5 % (37.0-47.0); Hemoglobin 15.5 g/dL (12.0-15.0); Immature Granulocyte Absolute 0.01 K/mm3 (0.00-0.031); Immature Granulocyte Percent A 0.3 % (0-0.5); Lymphocytes Absolute Auto 1.74 K/mm3 (0.9-3.2); Lymphocytes Percent Auto 45.9 % (18.3-44.2); Mean Corpuscular HGB Conc 34.1 g/dl (32-36); Mean Corpuscular Hemoglobin 30.7 pg (26-34); Mean Corpuscular Volume 90.1 fl (80-100); Mean Platelet Volume 10.8 fl (7.4-10.4); Monocytes Absolute Auto 0.2 K/mm3 (0.1-0.6); Monocytes Percent Auto 6.3 % (2.6-8.5); Neutrophils Absolute Auto 1.7 K/mm3 (1.3-6.7); Neutrophils Percent Auto 44.1 % (45.5-73.1); Platelet Count Result 269 k/mm3 (150-375); Red Blood Count 5.05 M/mm3 (4.2-5.4); Red Cell Distribution Width 13.4 % (11.5-14.5); White Blood Count 3.8 K/mm3 (4.5-10.0)
[2023-01-27 10:51] LABS: Appearance Urine Clear (Clear); Bacteria Urine None Seen /hpf; Bilirubin Urine Negative (Negative); Blood Urine Negative (Negative); Color Urine Yellow (Yellow); Glucose Urine UA Negative (Negative); Ketones Urine Negative (Negative); Leukocyte Esterase Ur Trace LEU/UL (Negative); Nitrate Urine Negative (Negative); Non Pathogenic Casts 0-2; Protein Urine Negative (Negative); RBC Urine 0-2 /hpf (0-2); Specific Grav Ur 1.006 (1.001-1.035); Squamous Epithelial Cell Urine Occasional /hpf (Few); WBC Urine 0-5 /hpf; pH Urine 7.5 (5.0-9.0)
[2023-01-27 10:54] LABS: Add Urine Microscopic? YES
[2023-01-27] MEDS: MECLIZINE HCL 25 MG TABLET PO (11:07)
[2023-01-27] MEDS: ONDANSETRON INJ 4 MG/2 ML VIAL IV PUSH (11:07)
[2023-01-27] MEDS: SODIUM CHLORIDE 0.9% IV 500 ML 999 ML IV CONT (11:08)
[2023-01-27 11:37] LABS: Partial Thromboplastin Time 22.9 SECONDS (22.3-36.8)
[2023-01-27 11:38] LABS: Prothrombin Time 13.6 Seconds (11.1-14.7)
[2023-01-27 12:02] LABS: Alanine Aminotransferase 20 U/L (6-35); Albumin Level 4.4 g/dL (3.5-5.1); Alkaline Phosphatase 90 U/L (38-126); Anion Gap 9 mmol/L (8-16); Aspartate Amino Transferase 21 U/L (14-36); Bilirubin,Total 0.5 mg/dL (0.2-1.3); Blood Urea Nitrogen 8 mg/dL (7-17); Calcium 9.7 mg/dL (8.4-10.2); Carbon Dioxide 24 mmol/L (22-30); Chloride 108 mmol/L (98-107); Estimated CRCL calculation 94 ml/min; Estimated Glomerular Filt Rate > 60; Glucose 102 mg/dL (65-110); Potassium 4.2 mmol/L (3.4-5.0); Sodium 141 mmol/L (137-145)
[2023-01-27 12:02] LABS: Influenza A QL RT-PCR Negative (Negative); Influenza B QL RT-PCR Negative (Negative); SARS-CoV-2 RNA PCR Negative (Negative)
== END 2023-01-27 14:41 | disposition home or self-care (01) ==
PROVIDERS: Emergency Provider Physician Assistant; PCP Physician Assistant
DX: R42 Dizziness and giddiness (principal); Z20.822 Contact with and (suspected) exposure to COVID-19; E78.5 Hyperlipidemia, unspecified; F41.9 Anxiety disorder, unspecified; Z87.891 Personal history of nicotine dependence; R94.31 Abnormal electrocardiogram [ECG] [EKG]
CPT/HCPCS: 36415; 70450; 71046; 71275; 80053; 81001; 85025; 85380; 85610; 85730; 87636; 93005; 96361; 96374; 99284; A9270; J2405; J7040; Q9967